=== PATIENT | female | born 1955 | race Caucasian/White ===

== ENCOUNTER 2016-12-15 09:39 | Emergency (ER) | payer BC ==
--- NOTE | 2016-12-15 10:10 | EDM.PDOC ---
ED HPI GENERAL MEDICAL PROBLEM - General Chief Complaint: Abdominal Pain Stated Complaint: BLADDER ISSUES Time Seen by Provider: 12/15/16 09:49 Source of Information: Reports: Patient, RN, RN Notes Reviewed History Limitations: Reports: No Limitations - History of Present Illness INITIAL COMMENTS - FREE TEXT/NARRATIVE: Patient presents to the emergency room at [facility] with concerns about her urine. The patient was recently diagnosed with diverticulitis last . She was started on ciprofloxacin and Flagyl. The patient states that she started the medicine she has noticed her urine color has gotten much darker and looks more concentrated. The patient states her symptoms of the diverticulitis are improving and she feels better in that regard. Patient states that she is urinating normal amounts. The patient denies any UTI symptoms. The patient states that after she finished voiding she feels a spasm in the pelvic area. Onset Date: 12/13/16 - Related Data Allergies Allergy/AdvReac Type Severity Reaction Status Date / Time tea nuts Allergy Facial Uncoded 12/15/16 10:03 Swelling Home Meds: Home Meds Calcium Carbonate [Calcium] 500 mg PO DAILY 12/15/16 [History] Ciprofloxacin [IJD: Ciprofloxacin HCl] 500 mg PO BID 12/15/16 [History] Multivitamin [Multi-Vitamin Daily] 1 each PO DAILY 12/15/16 [History] Daisy-3/DHA/Epa/Fish Oil [Daisy 3 500 Softgel] 1 each PO DAILY 12/15/16 [History ] metroNIDAZOLE [Flagyl] 500 mg PO Q8H 12/15/16 [History] ED ROS GENERAL - Review of Systems Review Of Systems: See Below Constitutional: Denies: Fever, Chills, Weakness Respiratory: Denies: Shortness of Breath, Cough Cardiovascular: Denies: Chest Pain, Palpitations GI/Abdominal: Reports: Abdominal Pain. Denies: Nausea, Vomiting : Reports: Pain, Other (dark color urine) Skin: Reports: No Symptoms Neurological: Reports: No Symptoms ED EXAM, GI/ABD - Physical Exam Exam: See Below Exam Limited By: No Limitations General Appearance: Alert, No Apparent Distress Respiratory/Chest: No Respiratory Distress, Lungs Clear, Normal Breath Sounds Cardiovascular: Regular Rate, Rhythm GI/Abdominal: Normal Bowel Sounds, Soft, Tenderness (lower abdomen/pelvis) Neurological: Alert, Oriented Skin Exam: Warm, Dry, Intact, Normal Color, No Rash Course - Vital Signs Last Recorded V/S: Last Vital Signs Temp 36.8 C 12/15/16 09:45 Pulse 96 12/15/16 09:45 Resp 16 12/15/16 09:45 BP 114/74 12/15/16 09:45 Pulse Ox 98 12/15/16 09:45 - Orders/Labs/Meds Labs: Laboratory Tests 12/15/16 12/15/16 Range/Units 10:10 10:30 Sodium 141 (136-145) mmol/L Potassium 3.5 (3.5-5.1) mmol/L Chloride 103 (98-107) mmol/L Carbon Dioxide 27 (21-32) mmol/L BUN 9 (7-18) mg/dL Creatinine 1.0 (0.55-1.02) mg/dL Est Cr Clr Drug Dosing 50.37 mL/min Estimated GFR (MDRD) 56 Glucose 116 H (74-106) mg/dL Calcium 9.0 (8.5-10.1) mg/dL Urine Color Yellow (YELLOW) Urine Appearance Slightly cloudy H (CLEAR) Urine pH 6.0 (5.0-8.0) Ur Specific [place] 1.015 Urine Protein 100 H (NEGATIVE) mg/dL Urine Glucose (UA) Negative (NEGATIVE) mg/dL Urine Ketones Trace H (NEGATIVE) mg/dL Urine Occult Blood Moderate H (NEGATIVE) Urine Nitrite Negative (NEGATIVE) Urine Bilirubin Small H (NEGATIVE) Urine Urobilinogen 0.2 (0.2) EU/dL Ur Leukocyte Esterase Large H (NEGATIVE) Urine RBC 20-30 H (NOT SEEN) /HPF Urine WBC 40-50 H (NOT SEEN) /HPF Ur Squamous Epith Cells Few H (NEGATIVE) /HPF Urine Bacteria Moderate H (NEGATIVE) /HPF Urine Mucus Few H (NEGATIVE) /LPF Departure - Departure Time of Disposition: 11:01 Disposition: Home, Self-Care 01 Condition: good Clinical Impression: Urinary tract infection Qualifiers: Urinary tract infection type: acute cystitis Hematuria presence: with hematuria Qualified Code(s): N30.01 - Acute cystitis with hematuria - Discharge Information Instructions: Urinary Tract Infection, Adult Referrals: Radha Mayfield DO [Primary Care Provider] - Forms: ED Department Discharge Additional Instructions: 1. Stay very well hydrated and rest 2. Continue with Cipro and Flagyl 3. Eat a bland diet while on the medications 4. Use Magnesium Citrate as needed for constipation 5. See your Primary as symptoms warrant - Problem List Review Problem List Initiated/Reviewed/Updated: Yes
[2016-12-15 10:32] VITALS: BP 114/74
== END 2016-12-15 11:10 | disposition home or self-care (01) ==
LOC: VM.ED 09:39
DX: N30.01 Acute cystitis with hematuria (principal); Z91.018 Allergy to other foods; Z79.899 Other long term (current) drug therapy
CPT/HCPCS: 36415; 80048; 81001; 99283

== ENCOUNTER 2019-04-20 09:56 | Day surgery (SDC) | payer BC ==
[~2019-04-20 09:56] MED LIST: Lactated Ringers 1,000 ML IV SCH
[2019-04-20] MEDS ORDERED: Propofol 200 MG/20 ML SDV ONE ×2 (10:21→11:23)
[2019-04-20] MEDS ORDERED: fentaNYL 100 MCG/2 ML SDV ONE (10:21)
[2019-04-20 12:08] VITALS: BP 128/40; PULSE 63
--- NOTE | 2019-04-20 15:35 | OR ---
PREOPERATIVE DIAGNOSES: Bloody stools and difficulty with defecation. POSTOPERATIVE DIAGNOSES: Bloody stools and difficulty with defecation. PROCEDURE PERFORMED: Colonoscopy. INDICATIONS: The patient is a 63-year-old female who underwent reversal of colostomy for diverticulitis about a year ago. She did well initially, but she was having increasing difficulty with defecation and some increasing blood in her stool and change in her bowel size, presents for colonoscopy for further evaluation. PROCEDURE IN DETAIL: This was done in the endoscopy suite. She was placed in left lateral position. First, a rectal exam was done, was normal. The scope was introduced into the rectum, slowly advanced to the rectum, sigmoid, descending, transverse, and ascending colon. Ascending colon, transverse colon, and left colon were normal. As the scope was withdrawn, the distal sigmoid and rectum from essentially the anus up to just a few centimeters above the anastomosis showed a very beefy friable mucosa consistent with a colitis. We did take multiple biopsies of the area and sent them to pathology. The scope was withdrawn the remainder of the way. FINAL DIAGNOSIS: Colitis. PLAN: Forward pending results of biopsies. BKD: 04/20/2019 11:41:48 MODL: 04/20/2019 14:43:24 /[id number]
== END 2019-04-20 13:22 | disposition home or self-care (01) ==
LOC: VM.SDS 09:56
PROVIDERS: ATTEND Surgery
DX: K92.1 Melena (principal); R15.0 Incomplete defecation; K52.9 Noninfective gastroenteritis and colitis, unspecified; E78.5 Hyperlipidemia, unspecified; E66.9 Obesity, unspecified; Z68.41 Body mass index [BMI] 40.0-44.9, adult; Z79.899 Other long term (current) drug therapy; Z88.1 Allergy status to other antibiotic agents; Z88.7 Allergy status to serum and vaccine
CPT/HCPCS: J2704; J3010; J7120

== ENCOUNTER 2021-07-07 17:48 | Emergency (ER) | payer BC ==
[2021-07-07] MEDS ORDERED: Ketorolac 30 MG/ML SDV IM ONE (18:09)
--- NOTE | 2021-07-07 18:17 | EDM.PDOC ---
ED HPI GENERAL MEDICAL PROBLEM - General Chief Complaint: Upper Extremity Injury/Pain Stated Complaint: FELL AND INJURED L SHOULDER Time Seen by Provider: 07/07/21 18:06 Source of Information: Reports: Patient - History of Present Illness INITIAL COMMENTS - FREE TEXT/NARRATIVE: Ann Marie is a 65 y/o female who comes to the ER with left shoulder pain. She was unloading some things at her [place] when she tripped on the curb and fell to the ground. She landed onto her left shoulder and could hardly get up due to the pain. She finally was able to and drive herself to the ER. Denies any previous injury to the shoulder - Related Data Allergies Allergy/AdvReac Type Severity Reaction Status Date / Time diphtheria,pertussis Allergy Sweating Verified 04/13/19 09:16 (acellular),te [From Daptacel (Pediatric)] levofloxacin [From Levaquin] Allergy Other Verified 04/13/19 09:16 tree nut Allergy Swelling Verified 07/22/18 14:13 witch bhargav Allergy Other Verified 04/13/19 09:16 enviromental Allergy Cannot Uncoded 01/21/17 11:49 Remember Home Meds: Home Meds Multivitamin [Multi-Vitamin Daily] 1 each PO DAILY 12/15/16 [History] Biotin 2,500 mcg PO DAILY 04/13/19 [History] L.acidoph,Paracasei, B.lactis [Probiotic] 1 cap PO DAILY 04/13/19 [History] Non-Formulary Medication [NF Drug] 1 cap PO TID 04/13/19 [History] Non-Formulary Medication [NF Drug] 1 each .XX DAILY 04/13/19 [History] Non-Formulary Medication [NF Drug] 10 drop .XX ASDIRECTED 04/13/19 [History] [place]-3/DHA/Epa/Fish Oil [[place]-3 Fish Oil 1,000 MG Sfgl] 1,000 mg PO DAILY 04/13/19 [History] predniSONE 20 mg PO DAILY 04/13/19 [History] Acetaminophen/HYDROcodone [HYDROcodone-Acetaminophen 5-325 MG *] 1 - 2 tab PO Q4H PRN #20 each 07/07/21 [Rx] Past Medical History HEENT History: Reports: Hard of Hearing, Other (See Below) Other HEENT History: vision loss Cardiovascular History: Reports: High Cholesterol, Hypertension Respiratory History: Reports: None Gastrointestinal History: Reports: Bowel Obstruction, Diverticulosis, Other (See Below) Other Gastrointestinal History: diverticulitis Genitourinary History: Reports: Other (See Below) Other Genitourinary History: urinary frequency Musculoskeletal History: Reports: Other (See Below) Other Musculoskeletal History: disorder of bone and cartilage. osteopenia Neurological History: Reports: Migraines, Other (See Below) Other Neuro History: restless leg syndrome Psychiatric History: Reports: Anxiety, Depression Endocrine/Metabolic History: Reports: Obesity/BMI 30+, Other (See Below) Other Endocrine/Metabolic History: dyslipidemia Hematologic History: Reports: None Immunologic History: Reports: None Oncologic (Cancer) History: Reports: Ovarian Dermatologic History: Reports: Other (See Below) Other Dermatologic History: shingles - Past Surgical History HEENT Surgical History: Reports: Oral Surgery Other HEENT Surgeries/Procedures: wisdom teeth extraction Cardiovascular Surgical History: Reports: None GI Surgical History: Reports: Colonoscopy, Colostomy, Lysis of Adhesions, Other (See Below) Other GI Surgeries/Procedures: exploratory laparotomy, lysis of adhesioins, small bowel resection with primary anastomosis, sigmoid colectomy with colostomy. reversal of colostomy Female Surgical History: Reports: Hysterectomy, Salpingo-Oophorectomy Neurological Surgical History: Reports: None Musculoskeletal Surgical History: Reports: Other (See Below) Other Musculoskeletal Surgeries/Procedures:: ankle fx 1990 Social & Family History - Family History Family Medical History: No Pertinent Family History - Caffeine Use Caffeine Use: Reports: None Review of Systems - Review of Systems Review Of Systems: See Below Constitutional: Reports: No Symptoms Eyes: Reports: No Symptoms Ears: Reports: No Symptoms Nose: Reports: No Symptoms Mouth/Throat: Reports: No Symptoms Respiratory: Reports: No Symptoms Cardiovascular: Reports: No Symptoms GI/Abdominal: Reports: No Symptoms Genitourinary: Reports: No Symptoms Musculoskeletal: Reports: Joint Pain (Left Shoulder) Skin: Reports: No Symptoms Neurological: Reports: No Symptoms Psychiatric: Reports: No Symptoms ED EXAM, GENERAL - Physical Exam Exam: See Below General Appearance: Alert, WD/WN, No Apparent Distress (Adult female, sitting in ER in chair.) Ears: Hearing Grossly Normal Throat/Mouth: Normal Voice Head: Atraumatic, Normocephalic Respiratory/Chest: No Respiratory Distress Extremities: Normal Inspection, Other (Painful ROM and patient cannot tolerate it, no step-offs or brusing noted. +tenderness palpated over lateral aspect.) Skin Exam: Warm, Dry, Intact, Normal Color Course - Vital Signs Text/Narrative:: 1805 The patient was seen by the [facility]. Xray ordered. Toradol 30 mg IM ordered for pain. 1829 Xray reviewed, noted non-displaced left humeral head fracture. Pt placed in left shoulder immobilizer. Will have pt follow up with her PCP for further care. She was given pain meds and discharged to home after written instructions were given. - Orders/Labs/Meds Orders: Active Orders 24 hr Category Date Time Status Shoulder Comp Lt [CR] Stat Exams 07/07/21 18:09 Ordered Meds: Medications Discontinued Medications Generic Name Dose Route Start Last Admin Trade Name Freq PRN Reason Stop Dose Admin Ketorolac Tromethamine 30 mg 07/07/21 18:09 Ketorolac 30 Mg/Ml Sdv IM 07/07/21 18:10 ONETIME ONE - Radiology Interpretation Free Text/Narrative:: XR Left Shoulder-note non-displaced fracture in the left humeral head (See final report) Departure - Departure Time of Disposition: 18:42 Disposition: Home, Self-Care 01 Condition: Good Clinical Impression: Fracture of humeral head, left, closed Qualifiers: Encounter type: initial encounter Qualified Code(s): S42.292A - Other displaced fracture of upper end of left humerus, initial encounter for closed fracture Fall Qualifiers: Encounter type: initial encounter Qualified Code(s): W19.XXXA - Unspecified fall, initial encounter - Discharge Information *PRESCRIPTION DRUG MONITORING PROGRAM REVIEWED*: No *COPY OF PRESCRIPTION DRUG MONITORING REPORT IN PATIENT RUTH: No Prescriptions: Acetaminophen/HYDROcodone [HYDROcodone-Acetaminophen 5-325 MG *] 1 - 2 tab PO Q4H PRN #20 each PRN Reason: Pain Instructions: Humerus Fracture Treated With Immobilization, [id number] Referrals: Radha Mayfield DO [Primary Care Provider] - Additional Instructions: -Hydrocodone/APAP 5/325mg 1-2 tablets every 4-6 hours as needed for pain #20 (Rx) #10 (ER Rx) -Keep the affected extremity in the shoulder immobilizer at all times. You may apply ice as needed to the shoulder region. -Make an appt to see your PCP at the [facility] to coordinate care and set up an Ortho referral if needed -Return to the ER as needed for any concerns - Problem List & Annotations (1) Fracture of humeral head, left, closed SNOMED Code(s): 642852956 Code(s): S42.292A - OTH DISP FX OF UPPER END OF LEFT HUMERUS, INIT FOR CLOS FX Status: Acute Current Visit: Yes Qualifiers: Encounter type: initial encounter Qualified Code(s): S42.292A - Other displaced fracture of upper end of left humerus, initial encounter for closed fracture (2) Fall SNOMED Code(s): 8005952, 696205170 Code(s): W19.XXXA - UNSPECIFIED FALL, INITIAL ENCOUNTER Status: Acute Current Visit: Yes Annotation/Comment:: Placed in shoulder immobilizer. Hydrocodone/APAP prn pain. Will have pt FU with PCP for further care. Qualifiers: Encounter type: initial encounter Qualified Code(s): W19.XXXA - Unspecified fall, initial encounter - My Orders Last 24 Hours: My Active Orders 07/07/21 18:09 Shoulder Comp Lt [CR] Stat - Assessment/Plan Last 24 Hours: My Active Orders 07/07/21 18:09 Shoulder Comp Lt [CR] Stat Plan: As above
[2021-07-07 18:31] VITALS: PULSE 90
[2021-07-07] MEDS ORDERED: Take Home: Acetaminophen/HYDROcodone 325-5 MG, 5 Tab Pack PO ONE (18:47)
--- NOTE | 2021-07-07 18:49 | CR ---
[id number] RAD/RAD Shoulder Left 2V Min EXAM: 2 VIEWS LEFT SHOULDER. INDICATION: FELL, CANNOT TOLERATE ROM COMPARISON: None. DISCUSSION: Acute subcapital humeral neck fracture. There is impaction and minimal displacement. No dislocation. IMPRESSION: 1. As above. Neel Greene DO 07/07/21 [id number] Thank you for allowing us to participate in the care of your patient.
== END 2021-07-07 19:06 | disposition home or self-care (01) ==
LOC: VM.ED 17:48
DX: S42.292A Other displaced fracture of upper end of left humerus, initial encounter for closed fracture (principal); E78.00 Pure hypercholesterolemia, unspecified; I10 Essential (primary) hypertension; E66.9 Obesity, unspecified; Z68.42 Body mass index [BMI] 45.0-49.9, adult; Z88.1 Allergy status to other antibiotic agents; Z91.048 Other nonmedicinal substance allergy status; Z88.7 Allergy status to serum and vaccine; W01.0XXA Fall on same level from slipping, tripping and stumbling without subsequent striking against object, initial encounter
CPT/HCPCS: 73030-LT; 96372; 99283; A9270-GY; J1885